=== PATIENT | female | born 1990 | race Caucasian/White ===

== ENCOUNTER 2019-06-15 13:47 | Emergency (ER) | payer SELFPAY ==
[~2019-06-15] VITALS: Ht 165.1 cm; Wt 68.2 kg
[2019-06-15 14:09] LABS: HEMATOCRIT 38.9 % (37.0-47.0); HEMOGLOBIN 13.1 g/dl (12.5-16.0); MEAN CELL VOLUME 91 fl (80.0-100.0); MEAN CORPUSCULAR HEMOGLOBIN 31 pg (27.0-31.0); MEAN CORPUSCULAR HGB CONC 34 g/dl (33.0-37.0); MEAN PLATELET VOLUME 10.8 fl (7.4-10.4); PLATELET COUNT 259 K/mm3 (130-400); RED BLOOD COUNT 4.26 M/mm3 (4.10-5.30); REDCELL DISTRIBUTION WIDTH-CV 12.8 % (11.5-14.5)
[2019-06-15 14:17] VITALS: TEMP 98.2
[2019-06-15 14:19] LABS: ALBUMIN 4.4 gm/dL (3.5-5.0); BILIRUBIN,TOTAL 0.9 mg/dL (0.0-1.0); CALCIUM 8.7 mg/dL (8.4-10.2); CREATININE, serum 0.96 (0.52-1.25); POTASSIUM 3.1 mmol/L (3.4-5.0); TOTAL PROTEIN 7.4 gm/dL (6.4-8.2)
[2019-06-15 14:36] LABS: BAND 2 % (0-10); LYMPHOCYTE 30 % (20.0-51.0); NEUTROPHILS 66 % (42.0-75.2); PLATELET ESTIMATE NORMAL (NORMAL)
[2019-06-15 15:18] VITALS: BP 145/93; PULSE 98
== END 2019-06-15 15:19 | disposition short-term general hospital (02) ==
LOC: COL.ER 13:47
PROVIDERS: Emergency Medicine
DX: S62.102A Fracture of unspecified carpal bone, left wrist, initial encounter for closed fracture (principal); S09.90XA Unspecified injury of head, initial encounter; W11.XXXA Fall on and from ladder, initial encounter; Y92.69 Other specified industrial and construction area as the place of occurrence of the external cause; Y99.0 Civilian activity done for income or pay
CPT/HCPCS: J0690; J2405; J3010; J7120

== ENCOUNTER 2019-09-27 18:42 | Emergency (ER) | payer SELFPAY ==
[~2019-09-27] VITALS: Ht 165.1 cm; Wt 68.2 kg
[2019-09-27] MEDS ORDERED: ROXICODONE 55 MG/TAB PO (19:28)
[2019-09-27 20:00] VITALS: BP 117/78; PULSE 82
== END 2019-09-27 20:14 | disposition home or self-care (01) ==
LOC: COL.ER 18:42
DX: S42.302A Unspecified fracture of shaft of humerus, left arm, initial encounter for closed fracture (principal); X58.XXXA Exposure to other specified factors, initial encounter; Y92.009 Unspecified place in unspecified non-institutional (private) residence as the place of occurrence of the external cause
CPT/HCPCS: J1170

== ENCOUNTER 2019-12-30 09:00 | Outpatient (RCR) | payer OTHER ==
[~2019-12-30 09:00] MED LIST: ROXICODONE 55 MG/TAB PO
== END 2020-01-16 | disposition still patient (30) ==
LOC: WSOT
DX: S52.552P Other extraarticular fracture of lower end of left radius, subsequent encounter for closed fracture with malunion (principal)